=== PATIENT | male | born 1960 | race Caucasian/White ===

== ENCOUNTER 2016-07-25 11:04 | Emergency (ER) | payer MEDICARE, OTHER ==
[2016-07-25 11:26] VITALS: BP 116/74; PULSE 87; TEMP 97.9; BMI 25.8
[2016-07-25] MEDS ORDERED: ONDANSETRON *ODT* 4 MG TABLET ONE (11:57)
[2016-07-25] MEDS ORDERED: ONDANSETRON *ODT* 4 MG TABLET SL ONE (12:13)
--- NOTE | 2016-07-25 12:14 | PDOC ---
History of Present Illness - General Chief Complaint: Cold Symptoms Stated Complaint: HEADACHES, NAUSEA Time Seen by Provider: 07/25/16 11:46 History Source: Patient Exam Limitations: No Limitations - History of Present Illness Initial Comments: 07/25/16 12:51 Patient here with complaints of general body aches, and nausea 10 days. States generally has frequency with urination but takes medication for same. Has used Pepto-Bismol with minimal resolved. Denies fever, ear or throat pain, denies cough, denies dizziness, headache or neurologic changes. 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 Denies chest pain palpitations shortness of breath or any other significant symptoms. Did not speak to physicians at [facility] as was hoping symptoms would resolve. On, denies drug or alcohol use. Timing/Duration: unsure, changing over time Severity: mild Associated Symptoms: reports: denies symptoms, loss of appetite, malaise. denies: nausea/vomiting (nausea no vomiting) Past History - Travel Traveled outside of the country in the last 30 days: No Close contact w/someone who was outside of country & ill: No - Past Medical History Allergies/Adverse Reactions: Allergies Allergy/AdvReac Type Severity Reaction Status Date / Time Penicillins Allergy Verified 07/25/16 11:20 Home Medications: Ambulatory Orders Ondansetron [Zofran *Odt*] 4 mg SL PRN PRN #14 od.tablet 07/25/16 CVA: Yes (2008) Suicide Attempt (Hx): No - Psycho/Social/Smoking Cessation Hx Anxiety: No Suicidal Ideation: No Smoking Status: No Smoking History: Current every day smoker Have you smoked in the past 12 months: Yes Number of Cigarettes Smoked Daily: 5 Information on smoking cessation initiated: Yes Hx Alcohol Use: No Drug/Substance Use Hx: No Substance Use Type: None Review of Systems - Review of Systems Able to Perform ROS?: Yes Is the patient limited [place] proficient: Yes Constitutional: Yes: Symptoms Reported, See HPI, Malaise HEENTM: Yes: See HPI. No: Symptoms Reported, Nose Congestion, Throat Pain, Throat Swelling Respiratory: Yes: See HPI. No: Symptoms reported, Cough, Shortness of Breath, Wheezing Cardiac (ROS): Yes: See HPI. No: Symptoms Reported, Chest Pain, Edema, Irregular Heart Rate ABD/GI: Yes: Symptoms Reported, See HPI, Nausea, Poor Appetite. No: Poor Fluid Intake, Rectal Bleeding, Vomiting : Yes: Symptoms Reported Musculoskeletal: No: Symptoms Reported Integumentary: Yes: Symptoms Reported All Other Systems: Reviewed and Negative *Physical Exam - Vital Signs Last Vital Signs Temp Pulse Resp BP Pulse Ox 97.9 F 87 18 116/74 100 07/25/16 11:21 07/25/16 11:21 07/25/16 11:21 07/25/16 11:21 07/25/16 11:21 - Physical Exam General Appearance: Yes: Nourished, Appropriately Dressed. No: Apparent Distress, Mild Distress HEENT: positive: COLE, Normal ENT Inspection, Normal Voice, TMs Normal, Pharynx Normal Neck: positive: Tender, Supple Respiratory/Chest: positive: Lungs Clear, Normal Breath Sounds Gastrointestinal/Abdominal: positive: Normal Bowel Sounds, Soft. negative: Tender, Guarding, Rebound, Tenderness, Hepatomegaly, Spleenomegaly Extremity: positive: Normal Capillary Refill, Normal Inspection, Normal Range of Motion. 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 Will treat with Zofran and check urinalysis to check for sugars and kidney function. If negative will follow-up at his PMD at [facility] 07/25/16 14:06 urinalysis negative, no glucose, pH normal, and no bili or blood noted. Zofran, is drinking and ready for discharge. Will follow-up with his PMD. *DC/Admit/Observation/Transfer Diagnosis at time of Disposition: Nausea alone - Discharge Dispostion Disposition: HOME Condition at time of disposition: Stable Admit: No - Prescriptions Prescriptions: Ondansetron [Zofran *Odt*] 4 mg SL PRN PRN #14 od.tablet PRN Reason: vomiting - Patient Instructions Printed Discharge Instructions: DI for Nausea -- Adult Additional Instructions: Rest, drink lots of fluids: Teas, water, soups Melisa dinorah, carbonated beverages for the bubbles May try peppermint teas Avoid heavy , spicy or fatty foods until symptoms have resolved Avoid contact with others until fevers and symptoms resolved Lots of handwashing and good hygiene Continue [id number] medications for symptomatic relief Tylenol or Motrin for fever and pain May use Zofran-one tablet dissolved on tongue as needed for nauseousness. May repeat times one every 8 hours Followup with private physician in one to 2 days as needed Return to emergency department for worsened symptoms, fevers, dehydration
[2016-07-25 12:38] LABS: URINE APPEARANCE CLEAR; URINE BILIRUBIN NEGATIVE (NEGATIVE); URINE BLOOD NEGATIVE (NEGATIVE); URINE COLOR YELLOW; URINE GLUCOSE (UA) NEGATIVE (NEGATIVE); URINE KETONE NEGATIVE (NEGATIVE); URINE LEUK ESTERASE NEGATIVE (NEGATIVE); URINE NITRITE NEGATIVE (NEGATIVE); URINE PROTEIN NEGATIVE (NEGATIVE); URINE UROBILINOGEN NEGATIVE E.U./dl (0.2-1.0)
== END 2016-07-25 13:16 | disposition home or self-care (01) ==
LOC: JERFT 11:04
DX: R11.0 Nausea (principal); I69.854 Hemiplegia and hemiparesis following other cerebrovascular disease affecting left non-dominant side; F17.210 Nicotine dependence, cigarettes, uncomplicated
CPT/HCPCS: 81003; 99281-25

== ENCOUNTER 2016-10-30 23:09 | Observation (INO) | payer MEDICARE, OTHER ==
[2016-10-30] MEDS ORDERED: morphine CARPU-JECT 4 MG/1 ML DISP.SYRIN IVPUSH ONE (23:30)
[2016-10-30] MEDS ORDERED: SODIUM CHLORIDE 1,000 ML IV SCH (23:30)
[2016-10-30] MEDS ORDERED: METOCLOPRAMIDE HCL INJECTION 10 MG/2 ML VIAL IVPB ONE (23:31)
[2016-10-30 23:32] VITALS: BMI 23.7
[2016-10-31 00:12] LABS: BASOPHIL 0.3 % (0-2.0); EOSINOPHIL 0.1 % (0-4.5); MCH 29.9 pg (25.7-33.7); MCHC 33.6 g/dl (32.0-35.9); MEAN CELL VOLUME 88.8 fl (80-96); MEAN PLT VOLUME 9.9 fl (7.5-11.1); NEUTROPHILS 78.4 % (42.8-82.8); PLATELET COUNT 196 K/MM3 (134-434); RDW 13.8 % (11.9-15.9); WHITE BLOOD COUNT 11.5 K/mm3 (4.0-10.0)
[2016-10-31] MEDS ORDERED: morphine CARPU-JECT 4 MG/1 ML DISP.SYRIN ONE (00:12)
[2016-10-31] MEDS ORDERED: METOCLOPRAMIDE HCL INJECTION 10 MG/2 ML VIAL ONE (00:12)
--- NOTE | 2016-10-31 00:25 | PDOC ---
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 Earlier this evening, the patient was cooking when he had a sudden onset of severe, throbbing headache at 11PM. The patient describes his headache as diffuse and persistent with some photophobia but denies any nausea, vomiting, or stiff neck.The patient states his headache is similar to his past brain bleed. Patient was seen by ED physician at 11:30 PM. Denies dizziness, slurred speech, weakness, lightheadedness, or loss of consciousness. <Luli Mcmahan - Last Filed: 10/31/16 00:42> - General History Source: Patient Exam Limitations: No Limitations <Steven Bhat - Last Filed: 10/31/16 02:23> - General Chief Complaint: Headache Stated Complaint: HEADACHE Time Seen by Provider: 10/30/16 23:21 Past History <Luli Mcmahan - Last Filed: 10/31/16 00:42> - Past Medical History CVA: Yes (2008) Suicide Attempt (Hx): No - Psycho/Social/Smoking Cessation Hx Anxiety: No Suicidal Ideation: No Smoking Status: No Smoking History: Current every day smoker Have you smoked in the past 12 months: Yes Number of Cigarettes Smoked Daily: 5 Information on smoking cessation initiated: No Hx Alcohol Use: No Drug/Substance Use Hx: No Substance Use Type: None <Steven Bhat - Last Filed: 10/31/16 02:23> - Past Medical History Allergies/Adverse Reactions: Allergies Allergy/AdvReac Type Severity Reaction Status Date / Time Penicillins Allergy Verified 10/30/16 23:19 Home Medications: Ambulatory Orders Ondansetron [Zofran *Odt*] 4 mg SL PRN PRN #14 od.tablet 07/25/16 Review of Systems - Review of Systems Comments:: 10/31/16 00:47 GENERAL/CONSTITUTIONAL: No fever or chills. No weakness. HEAD, EYES, EARS, NOSE AND THROAT: No change in vision. No ear pain or discharge. No sore throat. CARDIOVASCULAR: No chest pain or shortness of breath. RESPIRATORY: No cough, wheezing, or hemoptysis. GASTROINTESTINAL: No nausea, vomiting, diarrhea or constipation. GENITOURINARY: No dysuria, frequency, or change in urination. MUSCULOSKELETAL: No joint or muscle swelling or pain. No neck or back pain. ENDOCRINE: No increased thirst. No abnormal weight change. SKIN: No rash NEUROLOGIC: Headache, photophobia. No vertigo, loss of consciousness, or change in strength/sensation. <Luli Mcmahan - Last Filed: 10/31/16 00:42> *Physical Exam - Vital Signs Last Vital Signs Temp Pulse Resp BP Pulse Ox 98.1 F 72 20 118/95 99 10/30/16 23:19 10/30/16 23:19 10/30/16 23:19 10/30/16 23:19 10/30/16 23:19 - Physical Exam Comments: 10/31/16 00:48 GENERAL: Awake, alert, and fully oriented, uncomfortable appearing HEAD: No signs of trauma EYES: PERRLA, EOMI, sclera anicteric, conjunctiva clear ENT: Auricles normal inspection, hearing grossly normal, nares patent, oropharynx clear without exudates. Moist mucosa NECK: Normal ROM, supple, no lymphadenopathy, JVD, or masses LUNGS: Breath sounds equal, clear to auscultation bilaterally. No wheezes, and no crackles HEART: Regular rate and rhythm, normal S1 and S2, no murmurs, rubs or gallops ABDOMEN: Soft, nontender, normoactive bowel sounds. No guarding, no rebound. No masses EXTREMITIES: Normal range of motion, no edema. No clubbing or cyanosis. No cords, erythema, or tenderness NEUROLOGICAL: Cranial nerves II through XII grossly intact. 5/5 motor strength to lower and upper extremities. Sensation intact. Normal speech, normal gait. No pronator drift. SKIN: Warm, Dry, normal turgor, no rashes or lesions noted. HEMATOLOGIC/LYMPHATIC: No anemia, easy bleeding, or history of blood clots. ALLERGIC/IMMUNOLOGIC: No hives or skin allergy. <Luli Mcmahan - Last Filed: 10/31/16 00:42> - Vital Signs Last Vital Signs Temp Pulse Resp BP Pulse Ox 98.1 F 72 20 118/95 99 10/30/16 23:19 10/30/16 23:19 10/30/16 23:19 10/30/16 23:19 10/30/16 23:19 <Steven Bhat - Last Filed: 10/31/16 02:23> NIH Stroke Scale - Last Known Well Date/Time & Onset Date Last Known Well: 10/30/16 Time Last Known Well: 23:00 - Initial Evaluation Level of consciousness: Alert Ask patient the month and their age: Answers both correctly Ask patient to open & close eyes; make fist and let go: Obeys both correctly Best gaze (horizontal eye movement): Normal Visual field testing: No visual field loss Facial paresis (Show teeth/raise eyebrows/close eyes tight): Normal symmetrical movement Motor Function: Left Arm: Normal Motor Function: Right Arm: Normal (extends arm 90 (or 45) degrees for 10 seconds without drift Motor Function: Left Leg: Normal (extends leg 30 degrees for 5 seconds without drift) Motor Function: Right Leg: Normal (extends leg 30 degrees for 5 seconds without drift) Limb Ataxia: No ataxia Sensory(Use pinprick test arms,legs,trunk,face/side to side): Normal Best language (Describe picture, name items, read sentences): No Aphasia Dysarthria (read several words): Normal articulation Extinction and Inattention: No abnormality - Total Score NIH Stroke Scale Score: 0 <Steven Bhat - Last Filed: 10/31/16 02:23> Procedures - Lumbar Puncture Indication: Subarachnoid Hemmorhage CT Scan: Yes Betadine Prep: Yes Position: Sitting Site: L4-L51 Local Anesthesia: 1% Lidocaine with epi Volume(ml): 2 (without epinephrine) Lumbar Puncture Kit: Adult Traumatic Tap: No Tubes Obtained: 4 Clear Fluid: Yes Complications: No <Steven Bhat - Last Filed: 10/31/16 02:23> Heart Score/ECG Review #1 ECG reviewed & interpreted by me at: 00:40 10/31/16 01:08 NSR 69, RBBB, no std/zonia, T wave flat III, QTC 471 msec <Steven hBat - Last Filed: 10/31/16 02:23> Critical Care Time/MDM Note - Medical Decision Making Note: 10/31/16 00:23 A portion of this note was documented by scribe services under my direction. I have reviewed the details of the note, within reason, and agree with the documentation with the following case summary and management plan written by me. Patient treated in the ED. Nursing notes are reviewed and incorporated into the medical decision-making. Vital signs reviewed. Peripheral IV access obtained by the nurse, laboratory studies are drawn and sent, reviewed and interpreted by myself. Vital Signs Temp Pulse Resp BP Pulse Ox 98.1 F 72 20 118/95 99 10/30/16 23:19 10/30/16 23:19 10/30/16 23:19 10/30/16 23:19 10/30/16 23:19 56-year-old male with past medical history of AVM status post surgery 2009 presents with headache. Patient reports that he was cooking when suddenly at 11 PM he had a sudden onset of throbbing persistent headache diffusely. Reports some photophobia but denies phonophobia. Denies neck stiffness. Reported that he had a similar headache when he had a brain bleed. Code ramirez was activated. Head CT obtained which demonstrates AVM status post surgery acidity artifact. Differential includes migraines. We'll need to consider potentially lumbar puncture to rule out SAH. 10/31/16 02:01 CBC, BMP 10/30/16 23:40 10/30/16 23:40 CMP Sodium 142 mmol/L (136-145) 10/30/16 23:40 Potassium 3.9 mmol/L (3.5-5.1) 10/30/16 23:40 Chloride 106 mmol/L (98-107) 10/30/16 23:40 Carbon Dioxide 23 mmol/L (21-32) 10/30/16 23:40 Anion Gap 13 (8-16) 10/30/16 23:40 BUN 13 mg/dL (7-18) D 10/30/16 23:40 Creatinine 1.1 mg/dL (0.7-1.3) 10/30/16 23:40 Creat Clearance w eGFR > 60 (>60) 10/30/16 23:40 Random Glucose 90 mg/dL (74-106) 10/30/16 23:40 Calcium 9.4 mg/dL (8.5-10.1) 10/30/16 23:40 Total Bilirubin 1.3 mg/dL (0.2-1.0) H 10/30/16 23:40 AST 18 U/L (15-37) 10/30/16 23:40 ALT 30 U/L (12-78) 10/30/16 23:40 Alkaline Phosphatase 74 U/L (45-117) 10/30/16 23:40 Creatine Kinase 130 IU/L (39-308) 10/30/16 23:40 Troponin I < 0.02 ng/ml (0.00-0.05) 10/30/16 23:40 Total Protein 7.3 g/dl (6.4-8.2) 10/30/16:40 Albumin 4.3 g/dl (3.4-5.0) 10/30/16 23:40 Triglycerides 63 mg/dL (35-160) 10/30/16:40 Cholesterol 147 mg/dL (50-200) 10/30/16:40 INR, PTT INR 1.16 (0.82-1.09) H 10/30/16 23:40 CAT scan reviewed. Shows extensive coronary embolization with extensive beaming artifact interfering images difficult to interpret. Given the vehicle to obtaining and interpreted head CT and the patient's sudden onset of headache, risks and benefits were discussed with the patient regarding lumbar puncture. Patient verbalizes understanding and consents for lumbar puncture. Under sterile conditions and Betadine prep, a diagnostic lumbar puncture was successfully obtained after one attempt. Clear fluid was obtained. Lumbar puncture results were sent down to the laboratory. However, after speaking with the radiologist, the radiologist recommended that the patient would likely benefit from an MRI that is suitable for the metal in his brain for further evaluation. Patient reports feeling minimally better with the medication ordered. We'll admit the patient to the hospital for further evaluation. LP results pending. 10/31/16 02:[address] Jung. She accepts patient to med/surg observation. Case discussed in detail with admitting physician including history, physical exam and ancillary studies. Admitting physician has assumed care for the patient, will follow all pending diagnostics and will complete the evaluation and treatment. <Steven Bhat - Last Filed: 10/31/16 02:23> Discharge Disposition <Luli Mcmahan - Last Filed: 10/31/16 00:42> - Discharge Dispostion Admit: Yes <Steven Bhat - Last Filed: 10/31/16 02:23> - Diagnosis Headache Qualifiers: Headache type: unspecified Headache chronicity pattern: acute headache Intractability: not intractable Qualified Code(s): R51 - Headache - Discharge Dispostion Condition at time of disposition: Stable - Referrals Referrals: ShantaNatalie aranda [Primary Care Provider] - Attestations - Attestations 10/31/16 00:50 Documentation prepared by Luli Mcmahan, acting as medical coding manager for Steven Bhat MD. <Luli Mcmahan - Last Filed: 10/31/16 00:42> ED Treatment Course - LABORATORY CBC & Chemistry Diagram: 10/30/16 23:40 10/30/16 23:40 - ADDITIONAL ORDERS Additional order review: 10/30/16 23:40 RBC 5.50 MCV 88.8 MCHC 33.6 RDW 13.8 MPV 9.9 Neutrophils % 78.4 Lymphocytes % 14.8 Monocytes % 6.4 Eosinophils % 0.1 Basophils % 0.3 - RADIOLOGY Radiograph Interpretation: 10/31/16 00:51 Switchboard Troubleshooter: ([email or web address]) Report Date: 10/30/2016 23:34:00 Report Status: Addendum Begin of Report Content Referring Physician: Steven Shipley 12:00 AM Spencer Page: Pop shipley THIS DOCUMENT HAS BEEN ELECTRONICALLY SIGNED Pop Flowers M.D. 10/31/2016 00:02 JOHN Huerta Please call Imaging Model Making Supervisor [phone] with questions. PREVIOUS REPORT: Referring Physician: Steven Bhat Patient Name: Yossi Quinten This is a preliminary report by imaging fashion styling intern Exam: Noncontrast CT head Images: 147 Clinical indication: Rule out CVA. Findings: Extensive coil embolization is noted in the parietal/occipital lobes on the left with extensive beam hardening artifact renders images inferior to the the lateral ventricles nondiagnostic. The visualized parenchyma is unremarkable. Impression: Markedly limited examination due to beam hardening artifact from embolization coils seen posteriorly on the left. No acute abnormality seen. THIS DOCUMENT HAS BEEN ELECTRONICALLY SIGNED Pop Flowers M.D. 10/30/2016 23:57 EST MGermanD. Please call Imaging Model Making Supervisor [phone] with questions. End of Report Content Switchboard Troubleshooter: ([email or web address]) Report Date: 10/30/2016 23:34:00 Report Status: Preliminary Begin of Report Content Referring Physician: Steven Bhat Patient Name: Yossi Shipley This is a preliminary report by imaging fashion styling intern Exam: Noncontrast CT head Images: 147 Clinical indication: Rule out CVA. Findings: Extensive coil embolization is noted in the parietal/occipital lobes on the left with extensive beam hardening artifact renders images inferior to the the lateral ventricles nondiagnostic. The visualized parenchyma is unremarkable. Impression: Markedly limited examination due to beam hardening artifact from embolization coils seen posteriorly on the left. No acute abnormality seen. THIS DOCUMENT HAS BEEN ELECTRONICALLY SIGNED Pop Flowers M.D. 10/30/2016 23:57 EST Ke. Please call Imaging Model Making Supervisor [phone] with questions. End of Report Content - Medications Given in the ED: ED Medications Discontinued Medications Generic Name Dose Route Start Last Admin Trade Name Freq PRN Reason Stop Dose Admin Metoclopramide HCl 10 mg 10/30/16 23:31 10/31/16 00:21 Reglan Injection - IVPB 10/30/16 23:32 10 mg ONCE ONE Administration Morphine Sulfate 4 mg 10/30/16 23:30 10/31/16 00:20 Morphine Injection - IVPUSH 10/30/16 23:31 4 mg ONCE ONE Administration <Luli Mcmahan - Last Filed: 10/31/16 00:42> - LABORATORY CBC & Chemistry Diagram: 10/30/16 23:40 05/26/17 23:40 <Steven Bhat - Last Filed: 10/31/16 02:23>
[2016-10-31 01:24] LABS: INR 1.16 (0.82-1.09); PROTHROMBIN TIME (PATIENT) 12.8 SEC (9.98-11.88)
[2016-10-31 01:42] LABS: ALBUMIN 4.3 g/dl (3.4-5.0); ANION GAP 13 (8-16); CALCIUM 9.4 mg/dL (8.5-10.1); CO2 23 mmol/L (21-32); GLUCOSE,RANDOM 90 mg/dL (74-106)
[2016-10-31 01:48] LABS: ALK PHOS 74 U/L (45-117); BILIRUBIN,TOTAL 1.3 mg/dL (0.2-1.0); CHOLESTEROL 147 mg/dL (50-200); COCKROFT - GAULT 80.81; CREATININE 1.1 mg/dL (0.7-1.3); SGOT/AST 18 U/L (15-37); SGPT/ALT 30 U/L (12-78); TOT PROT 7.3 g/dl (6.4-8.2); TROPONIN I < 0.02 ng/ml (0.00-0.05)
[2016-10-31] MEDS ORDERED: ACETAMINOPHEN 1000 MG/100 ML VIAL (NON FORMULARY) IVPB ONE (01:48)
[2016-10-31 02:05] LABS: LDL CHOLESTEROL (ONLY SJRH) 103 mg/dL (5-100)
[2016-10-31] MEDS ORDERED: ACETAMINOPHEN INJECTION 100 ML IVPB ONE (02:13)
[2016-10-31 02:32] LABS: GLUCOSE,CSF 53 mg/dL (50-80)
[2016-10-31 02:37] LABS: CSF APPEARANCE CLEAR; CSF COLOR COLORLESS
[2016-10-31 02:40] LABS: CSF RBC 0 /mm3; CSF RBC 47 /mm3
--- NOTE | 2016-10-31 02:50 | PN ---
<Svetlana Jung - Last Filed: 10/31/16 02:50> Teaching Attending Note Name of Resident: Leslye Solorio <Joshua Medina - Last Filed: 10/31/16 04:33> Teaching Attending Note ATTENDING PHYSICIAN STATEMENT I saw and evaluated the patient. I reviewed the resident's note and discussed the case with the resident. I agree with the resident's findings and plan as documented. SUBJECTIVE: 56 year old male, with a significant past medical history of AVM (2008) s/p surgery with no residual effects and chronic headaches, who presented to the ED with a severe pressure headache for the past hour. He also reports photophobia and left sided weakness associated with his chief complaint. He states that ever since his surgery in 2008, he has had intermittent 5/10 headaches. He also notes that the change in temperature causes his headaches to be brought on. He also states that his headaches are usually resolved when he takes his medication or has a nosebleed. He notes that he usually has 1-2 nosebleeds a week. The patient states that he has "urinary dribbling" due to the many catheters that were inserted in 2008. He also states that he has bad retention memory. He denies neck stiffness, dizziness, lightheadedness or loss of consciousness. The patient reports occasional cigarette use (ranging from 1-5 when he does smoke) The patient is allergic to Penicillin, which causes him to develop a rash, as well as Tetanous. The patient is of descent and he was interviewed in his [place]in[place] language of chinese. OBJECTIVE: GENERAL: Awake, alert, and fully oriented, in no acute distress HEENT: (+) Obscured right sided gaze. Atraumatic. PERRLA, EOMI. Moist mucosa. No JVD LUNGS: (+) Mild bibasilar crackles. No distress, speaks full sentences. HEART: Regular rate and rhythm, normal S1 and S2, no murmurs, rubs or gallops, peripheral pulses normal and equal bilaterally. ABDOMEN: Soft, nontender, normoactive bowel sounds. No guarding, no rebound. No masses EXTREMITIES: Normal inspection, Normal range of motion, no edema. No clubbing or cyanosis. NEUROLOGICAL: Cranial nerves II through XII grossly intact. Normal speech, normal gait, no focal sensorimotor deficits SKIN: Warm, Dry, normal turgor, no rashes or lesions noted. CBCD WBC 11.5 K/mm3 (4.0-10.0) H 10/30/16 23:40 RBC 5.50 M/mm3 (4.00-5.60) 10/30/16 23:40 Hgb 16.4 GM/dL (11.7-16.9) 10/30/16 23:40 Hct 48.9 % (35.4-49) 10/30/16 23:40 MCV 88.8 fl (80-96) 10/30/16 23:40 MCHC 33.6 g/dl (32.0-35.9) 10/30/16 23:40 RDW 13.8 % (11.9-15.9) 10/30/16 23:40 Plt Count 196 K/MM3 (134-434) 10/30/16 23:40 MPV 9.9 fl (7.5-11.1) 10/30/16 23:40 CMP Sodium 142 mmol/L (136-145) 10/30/16 23:40 Potassium 3.9 mmol/L (3.5-5.1) 10/30/16 23:40 Chloride 106 mmol/L (98-107) 10/30/16 23:40 Carbon Dioxide 23 mmol/L (21-32) 10/30/16 23:40 Anion Gap 13 (8-16) 10/30/16 23:40 BUN 13 mg/dL (7-18) D 10/30/16 23:40 Creatinine 1.1 mg/dL (0.7-1.3) 10/30/16 23:40 Creat Clearance w eGFR > 60 (>60) 10/30/16 23:40 Calcium 9.4 mg/dL (8.5-10.1) 10/30/16 23:40 Total Bilirubin 1.3 mg/dL (0.2-1.0) H 10/30/16 23:40 AST 18 U/L (15-37) 10/30/16 23:40 ALT 30 U/L (12-78) 10/30/16 23:40 Alkaline Phosphatase 74 U/L (45-117) 10/30/16 23:40 Total Protein 7.3 g/dl (6.4-8.2) 10/30/16 23:40 Albumin 4.3 g/dl (3.4-5.0) 10/30/16 23:[address] Impression: Extensive coronary embolization with extensive beaming artifact interfering images difficult to interpret. 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
--- NOTE | 2016-10-31 03:03 | HP ---
CHIEF COMPLAINT: "I have a very bad headache" PCP: Dr Ashton Neuro on [address] [facility] Neuro[address] Roldan HISTORY OF PRESENT ILLNESS: This is a 56 yo M with PMH of AV malformation brain s/p surgery 2008, chronic h/ a, who presents due to severe headache. Severe pain started at 11 pm, w/o aura, throbbing, diffuse, 10/10, accompanied by photophobia and nausea. Patient has had chronic constant 5/10 h/a ever sine his surgery and occasionally gets a very severe 10/10 episode, last being 2 w ago that resolved spontaneously. Patient states that his headaches are relieved by nose bleed which occurs 3 x/ seek but not today. He took his daily amitriptyline with no symptomatic relief. He reports chronic l sided weakness since his surgery. He denies f/c, vomiting, chest pain, sob, cough, abd pain, dysuria, diarrhea. His h/a is now almost resolved. patietn states he had urinary incontinence for which he takes a TID med, he was told that he developed it because of frequent catheterization while in/out of hospital in 2008 for severe headaches. ER course was notable for: (1) labs (2)ct head, lumbar puncture (3)NS 1L, benadryl, morphine, tylenol, reglan Recent Travel: denies PAST MEDICAL HISTORY: as above PAST SURGICAL HISTORY: hernia repair, as above Social History: lives at home alone Smoking: daily 5 cig Alcohol: denies Drugs: denies Family History: denies Allergies Penicillins Allergy (Verified 10/30/16 23:19)-rash HOME MEDICATIONS: Home Medications Medication Instructions Recorded Ondansetron [Zofran *Odt*] 4 mg SL PRN PRN #14 od.tablet 07/25/16 REVIEW OF SYSTEMS CONSTITUTIONAL: Absent: fever, chills, diaphoresis, generalized weakness, malaise HEENT: Absent: rhinorrhea, nasal congestion, throat pain CARDIOVASCULAR: Absent: chest pain, syncope, palpitations, irregular heart rate, lightheadedness , peripheral edema RESPIRATORY: Absent: cough, shortness of breath, dyspnea with exertion, orthopnea, wheezing, stridor, hemoptysis GASTROINTESTINAL: Absent: abdominal pain, abdominal distension, nausea, vomiting, diarrhea, constipation, melena, hematochezia GENITOURINARY: Absent: dysuria, flank pain, genital pain MUSCULOSKELETAL: Absent: myalgia, arthralgia SKIN: Absent: rash, itching, pallor HEMATOLOGIC/IMMUNOLOGIC: Absent: easy bleeding, easy bruising, lymphadenopathy, frequent infections ENDOCRINE: Absent: unexplained weight gain, unexplained weight loss, heat intolerance, cold intolerance NEUROLOGIC: Absent: dizziness, unsteady gait, seizure, mental status changes, bladder or bowel incontinence PSYCHIATRIC: Absent: anxiety, depression PHYSICAL EXAMINATION GENERAL: Awake, alert, and fully oriented, in no acute distress. HEAD: Normal with no signs of trauma. EYES: Pupils equal, round and reactive to light, extraocular movements intact, sclera anicteric, conjunctiva clear. No lid lag. peripheral vision reduced in R eye lateral field. Fundoscopic exam: negative for papilledema. EARS, NOSE, THROAT: Moist mucous membranes. NECK: supple without lymphadenopathy, JVD, or masses. LUNGS: mild bibasilar crackles HEART: Regular rate and rhythm, normal S1 and S2 without murmur, rub or gallop. ABDOMEN: Soft, nontender, not distended, normoactive bowel sounds, no guarding, no rebound, no masses. No hepatomegaly or splenomegaly. MUSCULOSKELETAL: No CVA tenderness. UPPER EXTREMITIES: 2+ pulses, warm, well-perfused. No cyanosis. No clubbing. No peripheral edema. LOWER EXTREMITIES: 2+ pulses, warm, well-perfused. No calf tenderness. No peripheral edema. NEUROLOGICAL: Cranial nerves II-XII intact. Normal speech. strength 5/5 b/l upper and lower extremity, brachial and patellat reflexes 1+ b/l PSYCHIATRIC: Cooperative. Good eye contact. Appropriate mood and affect. SKIN: Warm, dry ASSESSMENT/PLAN: This is a 56 yo M with PMH of AV malformation brain s/p surgery 2008, chronic h/ a, who presents due to severe headache. 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 FEN no ivf lytes stable regular diet SCD Dispo: obs in med junaid Problem List - Problem (1) Headache Code(s): R51 - HEADACHE Qualifiers: Headache type: unspecified Headache chronicity pattern: acute headache Intractability: not intractable Qualified Code(s): R51 - Headache (2) Nausea alone Code(s): R11.0 - NAUSEA (3) AVM (arteriovenous malformation) Code(s): Q27.30 - ARTERIOVENOUS MALFORMATION, SITE UNSPECIFIED Visit type - Emergency Visit Emergency Visit: Yes ED Registration Date: 10/31/16 Care time: The patient presented to the Emergency Department on the above date and was hospitalized for further evaluation of their emergent condition. - New Patient This patient is new to me today: Yes Date on this admission: 10/31/16 - Critical Care Critical Care patient: No
[2016-10-31] MEDS ORDERED: ACETAMINOPHEN/CAFFEINE/BUTALBITAL 1 TAB PO PRN (04:24)
[2016-10-31] MEDS ORDERED: ONDANSETRON *ODT* 4 MG TABLET SL PRN (04:25)
[2016-10-31 07:36] LABS: MCH 30.5 pg (25.7-33.7); MEAN CELL VOLUME 89.5 fl (80-96); MEAN PLT VOLUME 9.4 fl (7.5-11.1); PLATELET COUNT 183 K/MM3 (134-434); RDW 13.8 % (11.9-15.9); WHITE BLOOD COUNT 7.5 K/mm3 (4.0-10.0)
[2016-10-31 09:52] LABS: CALCIUM 9.4 mg/dL (8.5-10.1); COCKROFT - GAULT 97.31; CREATININE 0.9 mg/dL (0.7-1.3); MAGNESIUM 2.3 mg/dL (1.8-2.4); PHOSPHOROUS 3.5 mg/dL (2.5-4.9)
--- NOTE | 2016-10-31 15:15 | HOSP ---
Subjective - Review of Symptoms Events since last encounter: Patient has less headache than yesterday. Peripheral vision loss was after his AVM coiling. Has no aura, started to have headache after his sx as he stated was 7 yrs ago. Temperature 98.0 F 10/31/16 14:48 Pulse Rate 76 10/31/16 14:48 Respiratory Rate 16 10/31/16 14:48 Blood Pressure 117/73 10/31/16 14:48 O2 Sat by Pulse Oximetry (%) 97 10/31/16 12:26 GENERAL: Awake, alert, and fully oriented, in no acute distress. HEAD: Normal with no signs of trauma. EYES: Pupils equal, round and reactive to light, extraocular movements intact, sclera anicteric, conjunctiva clear. peripheral vision reduced in both eyes lateral field. Fundoscopic exam: negative for papilledema as per night team. EARS, NOSE, THROAT: Moist mucous membranes. NECK: supple without lymphadenopathy, JVD, or masses. LUNGS: mild bibasilar crackles other oneil no wheeze HEART: Regular rate and rhythm, normal S1 and S2 without murmur, rub or gallop. ABDOMEN: Soft, nontender, not distended, normoactive bowel sounds, no guarding, no rebound, no masses appreciated . MUSCULOSKELETAL: No CVA tenderness. EXTREMITIES: 2+ pulses, warm, well-perfused. No cyanosis. No clubbing. No peripheral edema. NEUROLOGICAL: Cranial nerves II-XII intact. Normal speech. PSYCHIATRIC: Cooperative. Good eye contact. Appropriate mood and affect. SKIN: Warm, dry, MMM CBCD WBC 7.5 K/mm3 (4.0-10.0) D 10/31/16 06:00 RBC 5.22 M/mm3 (4.00-5.60) 10/31/16 06:00 Hgb 15.9 GM/dL (11.7-16.9) 10/31/16 06:00 Hct 46.7 % (35.4-49) 10/31/16 06:00 MCV 89.5 fl (80-96) 10/31/16 06:00 MCHC 34.0 g/dl (32.0-35.9) 10/31/16 06:00 RDW 13.8 % (11.9-15.9) 10/31/16 06:00 Plt Count 183 K/MM3 (134-434) 10/31/16 06:00 MPV 9.4 fl (7.5-11.1) 10/31/16 06:00 CMP Sodium 142 mmol/L (136-145) 10/31/16 06:00 Potassium 4.2 mmol/L (3.5-5.1) 10/31/16 06:00 Chloride 108 mmol/L (98-107) H 10/31/16 06:00 Carbon Dioxide 25 mmol/L (21-32) 10/31/16 06:00 Anion Gap 9 (8-16) 10/31/16 06:00 BUN 11 mg/dL (7-18) 10/31/16 06:00 Creatinine 0.9 mg/dL (0.7-1.3) 10/31/16 06:00 Creat Clearance w eGFR > 60 (>60) 10/30/16 23:40 Random Glucose 82 mg/dL (74-106) 10/31/16 06:00 Calcium 9.4 mg/dL (8.5-10.1) 10/31/16 06:00 Total Bilirubin 1.3 mg/dL (0.2-1.0) H 10/30/16 23:40 AST 18 U/L (15-37) 10/30/16 23:40 ALT 30 U/L (12-78) 10/30/16 23:40 Alkaline Phosphatase 74 U/L (45-117) 10/30/16 23:40 Total Protein 7.3 g/dl (6.4-8.2) 10/30/16 23:40 Albumin 4.3 g/dl (3.4-5.0) 10/30/16 23:40 CARDIAC ENZYMES Creatine Kinase 130 IU/L (39-308) 10/30/16 23:40 Troponin I < 0.02 ng/ml (0.00-0.05) 10/30/16 23:40 Current Medications Generic Name Dose Route Start Last Admin Trade Name Freq PRN Reason Stop Dose Admin Acetaminophen/Butalbital/Caffeine 1 tablet 10/31/16 04:24 Fioricet - PO Q4H PRN FEVER OR PAIN Amitriptyline HCl 10 mg 10/31/16 22:00 Elavil - PO HS LEE Sodium Chloride 1,000 mls @ 42 mls/hr 10/30/16 23:30 10/31/16 00:21 Normal Saline - IV 42 mls/hr ASDIR LEE Administration Ondansetron HCl 4 mg 10/31/16 04:25 Zofran Odt - SL PRN PRN vomiting Home Medications Medication Instructions Recorded Ondansetron [Zofran *Odt*] 4 mg SL PRN PRN #14 od.tablet 07/25/16 Amitriptyline HCl [Elavil -] 10 mg PO HS 10/31/16 A/P: This is a 56 yo M with PMH of AV malformation brain s/p surgery 2008, chronic h/ a, who presents due to severe headache. # Acute over chronic migraine exacerbation without any aura due to surgically coiled a/v malformation Neuro consult appreciated. as per neuro to increase amitriptyline to 25 mg qhs and Depakote ER 500 mg q PM nightly after dinner (take on a full stomach). Discontinue gabapentin 100 mg tid can follow up with his neurologist, or if he can follow with Dr. Mcgrath if the office takes his insurance, he can call us at [phone] as he would be a good Botox candidate. DVT Px :early ambulation, SCds Physical Examination Vital Signs: Vital Signs Temperature 98.0 F 10/31/16 14:48 Pulse Rate 76 10/31/16 14:48 Respiratory Rate 16 10/31/16 14:48 Blood Pressure 117/73 10/31/16 14:48 O2 Sat by Pulse Oximetry (%) 97 10/31/16 12:26 Labs: CBC, BMP 10/31/16 06:00 10/31/16 06:00
--- NOTE | 2016-10-31 16:31 | CON.NEURO ---
Consult Consult Specialty:: Neurology Reason for Consultation:: Severe headache - History of Present Illness Chief Complaint: Headache History of Present Illness: 56 year old man with history of left occipital AVM, s/p coil embolization years ago. AVM discovered because of complaints of headaches and hemorrhage at that time. He currently has chronic daily headaches, usually 4/10 intensity with associated photophobia, phonophobia, nausea and sometimes vomiting. The pain is constant and nonthrobbing at the left vertex, though more generalized as well. He reports that he has tried numerous medications but that his recall for their names and the names of his neurologists are impaired. He was previously on percocet and was asked to switched to amitritptyline 10 mg qhs, but he doesn't think that it does much. he also takes gabapentin 100 mg TID. He presented last night because of intensification of the pain to the point where he was afraid that he would pass out, but he is now back at his baseline of 4/[address] scan revealed no acute changes. 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: Other (AVM s/p coiling) - Alcohol/Substance Use Hx Alcohol Use: No - Smoking History Smoking history: Current every day smoker Have you smoked in the past 12 months: Yes Aproximately how many cigarettes per day: 5 Home Medications - Allergies Allergies/Adverse Reactions: Allergies Allergy/AdvReac Type Severity Reaction Status Date / Time Penicillins Allergy Verified 10/30/16 23:19 - Home Medications Home Medications: Ambulatory Orders Ondansetron [Zofran *Odt*] 4 mg SL PRN PRN #14 od.tablet 07/25/16 Amitriptyline HCl [Elavil -] 10 mg PO HS 10/31/16 Gabapentin [Neurontin] 100 mg PO TID 10/31/16 Physical Exam-Neuro Vital Signs: Vital Signs Temperature 98.0 F 10/31/16 14:48 Pulse Rate 76 10/31/16 14:48 Respiratory Rate 16 10/31/16 14:48 Blood Pressure 117/73 10/31/16 14:48 O2 Sat by Pulse Oximetry (%) 97 10/31/16 12:26 Labs: CBC, BMP 10/31/16 06:00 10/31/16 06:00 INR, PTT INR 1.16 (0.82-1.09) H 10/30/16 23:40 - Neuro Exam Level Of Consciousness: Yes: Alert, Oriented to Person, Oriented to Place, Oriented to Time Eyes: Yes: COLE Speech: WNL Cranial Nerves II-XII Intact: Yes DTR's: 2+ Left Bicep, 2+ Right Bicep, 2+ Left Tricep, 2+ Right Tricep, 2+ Left Brachioradialis, 2+ Right Brachioradialis, 2+ Left Achilles, 2+ Right Achilles Babinski: Absent Response to light touch: Normal Motor Strength: 5/5: Left Arm, Right Arm, Left Leg, Right Leg Gait: Normal NIH Stroke Scale - Total Score NIH Stroke Scale Score: 0 Imaging - Results Cat Scan: Report Reviewed, Image Reviewed (AVM, beam hardening artefact from coil) Problem List - Problems (1) Chronic migraine without aura with status migrainosus, not intractable Assessment/Plan: No neurologic contraindication to discharge. Suggest increasing amitriptyline to 25 mg qhs. Discontinue gabapentin 100 mg tid (evidence is lacking of its efficacy in migaine) and add Depakote ER 500 mg q PM nightly after dinner (take on a full stomach). He can either follow up with his neurologist, or if we take his insurance, he can call us at [phone] as he would be a good Botox candidate. Code(s): G43.701 - CHRONIC MIGRAINE W/O AURA, NOT INTRACTABLE, W STAT MIGR
[2016-10-31] MEDS ORDERED: DIVALPROEX NA *ER* EXTEND REL 500 MG TABLET.SA (FP) PO SCH ×2 (18:00)
[2016-10-31] MEDS ORDERED: AMITRIPTYLINE HCL 25 MG TABLET (FP) PO SCH (22:00)
[2016-10-31] MEDS ORDERED: AMITRIPTYLINE HCL 10 MG TABLET (FP) PO SCH (22:00)
[2016-10-31 22:55] VITALS: TEMP 98.2
[2016-11-01 06:04] VITALS: BP 102/67; PULSE 58
--- NOTE | 2016-11-01 09:09 | DS ---
Physical Exam: SUBJECTIVE: Patient seen and examined Patient's headache is around 3 vs 12/10 on presentation to the hospital. OBJECTIVE: Vital Signs Temperature 98.2 F 11/01/16 05:00 Pulse Rate 58 L 11/01/16 05:00 Respiratory Rate 18 11/01/16 05:00 Blood Pressure 102/67 11/01/16 05:00 O2 Sat by Pulse Oximetry (%) 97 11/01/16 04:00 PHYSICAL EXAM GENERAL: The patient is awake, alert, and fully oriented, in no acute distress. HEAD: Normal with no signs of trauma. EYES: PERRL, extraocular movements intact, sclera anicteric, conjunctiva clear. ENT: Ears normal, oropharynx clear without exudates, moist mucous membranes. NECK: Trachea midline, full range of motion, supple. LUNGS: Breath sounds equal, clear to auscultation bilaterally, no wheezes, no crackles, no accessory muscle use. HEART: Regular rate and rhythm, S1, S2 without murmur, rub or gallop. ABDOMEN: Soft, NT,ND, normoactive bowel sounds, no guarding, no rebound, no hepatosplenomegaly, no masses. EXTREMITIES: 2+ pulses, warm, well-perfused, no edema. NEUROLOGICAL: Cranial nerves II through XII grossly intact. Normal speech, gait is stable. PSYCH: Normal mood, normal affect. SKIN: Warm, dry, normal turgor, no rashes or lesions noted. LABS CBCD WBC 7.5 K/mm3 (4.0-10.0) D 10/31/16 06:00 RBC 5.22 M/mm3 (4.00-5.60) 10/31/16 06:00 Hgb 15.9 GM/dL (11.7-16.9) 10/31/16 06:00 Hct 46.7 % (35.4-49) 10/31/16 06:00 MCV 89.5 fl (80-96) 10/31/16 06:00 MCHC 34.0 g/dl (32.0-35.9) 10/31/16 06:00 RDW 13.8 % (11.9-15.9) 10/31/16 06:00 Plt Count 183 K/MM3 (134-434) 10/31/16 06:00 MPV 9.4 fl (7.5-11.1) 10/31/16 06:00 CMP Sodium 142 mmol/L (136-145) 10/31/16 06:00 Potassium 4.2 mmol/L (3.5-5.1) 10/31/16 06:00 Chloride 108 mmol/L (98-107) H 10/31/16 06:00 Carbon Dioxide 25 mmol/L (21-32) 10/31/16 06:00 Anion Gap 9 (8-16) 10/31/16 06:00 BUN 11 mg/dL (7-18) 10/31/16 06:00 Creatinine 0.9 mg/dL (0.7-1.3) 10/31/16 06:00 Creat Clearance w eGFR > 60 (>60) 10/30/16 23:40 Random Glucose 82 mg/dL (74-106) 10/31/16 06:00 Calcium 9.4 mg/dL (8.5-10.1) 10/31/16 06:00 Total Bilirubin 1.3 mg/dL (0.2-1.0) H 10/30/16 23:40 AST 18 U/L (15-37) 10/30/16 23:40 ALT 30 U/L (12-78) 10/30/16 23:40 Alkaline Phosphatase 74 U/L (45-117) 10/30/16 23:40 Total Protein 7.3 g/dl (6.4-8.2) 10/30/16 23:40 Albumin 4.3 g/dl (3.4-5.0) 10/30/16 23:40 CARDIAC ENZYMES Creatine Kinase 130 IU/L (39-308) 10/30/16 23:40 Troponin I < 0.02 ng/ml (0.00-0.05) 10/30/16 23:40 Current Medications Generic Name Dose Route Start Last Admin Trade Name Freq PRN Reason Stop Dose Admin Amitriptyline HCl 25 mg 10/31/16 22:00 10/31/16 21:23 Elavil - PO 25 mg HS LEE Administration Divalproex Sodium 500 mg 10/31/16 18:00 10/31/16 18:09 Depakote *Er* - PO 500 mg 1800 LEE Administration Ondansetron HCl 4 mg 10/31/16 04:25 Zofran Odt - SL PRN PRN vomiting Home Medications Medication Instructions Recorded Ondansetron [Zofran Odt -] 4 mg SL PRN PRN #14 od.tablet 07/25/16 Amitriptyline HCl [Elavil -] 25 mg PO HS #30 tablet 11/01/16 Divalproex *ER* [Depakote *ER* -] 500 mg PO 1800 #30 tab 11/01/16 HOSPITAL COURSE: Date of Admission:10/31/16 Date of Discharge: 11/01/16 This is a 56 yo M with PMHx of AV malformation brain s/p surgery 2008, suffers from chronic h/a post surgery who presents with severe headache to the hospital. # Acute over chronic migraine exacerbation without any aura due to surgically coiled a/v malformation. Neuro was consulted who prescribed Depakote ER 500mg po after dinner daily and increased the dose of amitriptyline. As per neuro patient is stable to be discharged.As per neuro to increase amitriptyline to 25 mg qhs and Depakote ER 500 mg qPM nightly after dinner (take on a full stomach). Discontinue gabapentin 100 mg tid Can follow up with his neurologist, or if he can follow with Dr. Mcgrath if the office takes his insurance, he can call us at [phone] as he would be a good Botox candidate. discharge time 35minutes Minutes to complete discharge: 35 Discharge Summary Reason For Visit: HEADACHE Current Active Problems AVM (arteriovenous malformation) (Acute) Chronic migraine without aura with status migrainosus, not intractable (Acute) Headache (Acute) Condition: Stable - Instructions Diet, Activity, Other Instructions: low sodium diet follow with neurologist in a week period Depakote ER 500mg added for your headache. Take it after your dinner. Also increased the dose of amitriptyline to 25mg at bedtime follow with neurosurgeon as well within a week period. If the symptoms get worse please go to the nearest hospital. Referrals: Natalie Goetz [Non Staff, Medical] - Earl Mcgrath MD [Staff Physician] - 1 Week Disposition: HOME - Home Medications Comprehensive Discharge Medication List: Ambulatory Orders Ondansetron [Zofran Odt -] 4 mg SL PRN PRN #14 od.tablet 07/25/16 Amitriptyline HCl [Elavil -] 25 mg PO HS #30 tablet 11/01/16 Divalproex *ER* [Depakote *ER* -] 500 mg PO 1800 #30 tab 11/01/16 This patient is new to me today: No Emergency Visit: Yes ED Registration Date: 10/31/16 Care time: The patient presented to the Emergency Department on the above date and was hospitalized for further evaluation of their emergent condition. Critical Care patient: No - Discharge Referral Referred to [facility] No
--- NOTE | 2016-11-02 10:37 | EKG ---
Test Reason : Blood Pressure : / mmHG Vent. Rate : 069 BPM Atrial Rate : 069 BPM P-R Int : 176 ms QRS Dur : 136 ms QT Int : 440 ms P-R-T Axes : 074 054 049 degrees QTc Int : 471 ms NORMAL SINUS RHYTHM RIGHT BUNDLE BRANCH BLOCK ABNORMAL ECG NO PREVIOUS ECGS AVAILABLE Confirmed by BATOOL ARMSTRONG, DUSTIN ([id number]) on 11/02/2016 10:37:00 AM Referred By: Confirmed By:DUSTIN RENAE MD
== END 2016-11-01 10:40 | disposition home or self-care (01) ==
LOC: JER 23:09 → JERBED 10-31 02:23 → J8W 10-31 04:49
PROVIDERS: ADMIT Internal Medicine; ATTEND Internal Medicine
PROC: 009U3ZZ Drainage of Spinal Canal, Percutaneous Approach (ICD-10-PCS; principal; 2016-10-31)
PROC: 3E033GC Introduction of Other Therapeutic Substance into Peripheral Vein, Percutaneous Approach (ICD-10-PCS; 2016-10-31)
PROC: 3E033NZ Introduction of Analgesics, Hypnotics, Sedatives into Peripheral Vein, Percutaneous Approach (ICD-10-PCS; 2016-10-31)
DX: G43.701 Chronic migraine without aura, not intractable, with status migrainosus (principal); Q28.2 Arteriovenous malformation of cerebral vessels; F17.210 Nicotine dependence, cigarettes, uncomplicated; I45.10 Unspecified right bundle-branch block; Z86.73 Personal history of transient ischemic attack (TIA), and cerebral infarction without residual deficits; Z87.74 Personal history of (corrected) congenital malformations of heart and circulatory system; R32 Unspecified urinary incontinence
CPT/HCPCS: 36415; 70450-TC; 80048; 80053; 82465; 82550; 82945; 83718; 83721; 83735; 84100; 84157; 84478; 84484; 85025; 85027; 85610; 86850; 86900; 86901; 87070; 87205; 89050; 93005; 93010; 99284-25; G0378

== ENCOUNTER → 2019-01-31 | Outpatient (CLI) | payer MEDICARE, OTHER | LOC: YHH 09:26 ==

== ENCOUNTER 2020-10-08 12:01 | Emergency (ER) | payer OTHER, MEDICARE ==
[2020-10-08 12:10] VITALS: BP 110/80; PULSE 98; TEMP 98.4; BMI 24.8
[2020-10-08] MEDS ORDERED: KETOROLAC TROMETHAMINE 30 MG/1 ML VIAL IM ONE (12:44)
[2020-10-08] MEDS ORDERED: diazePAM 5 MG TABLET PO ONE (12:45)
[2020-10-08] MEDS ORDERED: KETOROLAC TROMETHAMINE 30 MG/1 ML VIAL ONE (12:50)
[2020-10-08] MEDS ORDERED: diazePAM 5 MG TABLET ONE (12:50)
== END 2020-10-08 13:01 | disposition home or self-care (01) ==
LOC: JERFT 12:01
PROC: 3E0233Z Introduction of Anti-inflammatory into Muscle, Percutaneous Approach (ICD-10-PCS; principal; 2020-10-08)
DX: M54.5 Low back pain (principal)
CPT/HCPCS: 99284-25

== ENCOUNTER → 2022-06-17 | Day surgery (SDC) | payer MEDICARE, OTHER | END | disposition home or self-care (01) | LOC: JRADIR 08:41 | PROVIDERS: ATTEND Registered Nurse Medical-Surgical | PROC: 0G9G3ZX Drainage of Left Thyroid Gland Lobe, Percutaneous Approach, Diagnostic (ICD-10-PCS; principal; 2022-06-17) | DX: E04.1 Nontoxic single thyroid nodule (principal) | CPT/HCPCS: 10005; 76942; 88173; 88305-TC ==